=== PATIENT | female | born 1950 | race Hispanic/Latino ===

== ENCOUNTER 2016-03-01 20:16 | Emergency (ER) | payer OTHER, BC ==
[~2016-03-01] VITALS: Ht 154.9 cm; Wt 63.7 kg
[2016-03-01] MEDS ORDERED: LIDOCAINE20 MG/1 M5 PO (23:32)
[2016-03-01 23:49] VITALS: BP 133/88
== END 2016-03-01 23:49 | disposition home or self-care (01) ==
LOC: EME 20:16 → EXP 20:16
DX: J35.8 Other chronic diseases of tonsils and adenoids (principal); H92.09 Otalgia, unspecified ear; H65.91 Unspecified nonsuppurative otitis media, right ear; M54.9 Dorsalgia, unspecified; R53.83 Other fatigue; Z88.0 Allergy status to penicillin
CPT/HCPCS: 87651 90; 99281; 99283